=== PATIENT | male | born 1945 | race Caucasian/White ===

== ENCOUNTER 2019-12-05 08:11 | Outpatient (CLI) | payer MEDICARE ==
--- NOTE | 2019-12-05 10:53 | CT ---
CT ABDOMEN WITH CONTRAST CT PELVIS WITH CONTRAST: DATE: 12/05/2019 HISTORY: 74-year-old male with colon mass. COMPARISON: None. TECHNIQUE: IV injection of iodinated contrast media: Isovue 370. Oral contrast media: Administered. FINDINGS: There is a large number of metastatic lesions in the right lobe of the liver and several in the left lobe of the liver, with heterogeneously moderately low attenuation compared to the normal liver paren chyma, and irregular margins. For example, one of the larger ones in hepatic segment Broderick measures patrick roximately 2.5 x 2.5 x 3.5 cm. In addition to these, there are multiple benign hepatic cysts. The largest is in hepatic segment VII with broad base against the superior hepatic capsule, measuring approximately 6.0 x 4.5 x 3.5 cm. The portal vein is patent. No major pathology identified involving bilateral kidneys, pancreas, adrenals, and spleen. Enlarged prostate. Diffuse mural thickening of urinary bladder, suggestive of chronic bladder outlet obstruction due to the enlarged prostate. There are multiple mildly enlarged upper periaortic retroperitoneal lymph nodes. For example, a right anterior periaortic lymph node measures approximately 1.5 x 1.8 x 2.5 cm. There are many additional mildly to moderately enlarged bilateral paraaortic retroperitoneal lymph nodes, all in the upper retr operitoneum. There are also several mildly to moderately enlarged periportal lymph nodes. For example, the one lym ph node between the portal vein and the infrahepatic IVC measures approximately 3 x 9 x 1.5 cm. Mural thickening of the upper to mid rectum. There is a constricting mass at the hepatic flexure of the colon, which is highly likely to be colon cancer. It significantly narrows the lumen. There is a 2 cm calcified gallstone. No signs of acute cholecystitis. No ascites, small bowel dilation, colonic diverticulitis, or pleural effusion. There is a 2 cm posterior basilar segment left lower lobe pulmonary nodule. Nearby, there is a tiny s ubcentimeter pulmonary nodule. In the contralateral right lower lobe superior segment, there is a partially imaged pulmonary nodule which is at least 0.9 cm. Severe bilateral facet DJD at L4-5 causes Grade I anterolisthesis of L4 on L5. There is associated ve ry severe central spinal canal stenosis at L4-5. There is also severe bilateral facet DJD at L5-S1. No obvious destructive osseous lesion identified. IMPRESSION: 1. Numerous hepatic metastases. 2. Evidence for colon cancer in hepatic segment of the right colon. 3. Several bilateral pulmonary nodules, highly suspicious for pulmonary metastases. The largest is a pproximately 2 cm in left lower lobe base. 4. Very severe lumbar central spinal canal stenosis at L4-5 due to Grade I spondylolisthesis which i s due to severe bilateral facet osteoarthrosis. 5. Enlarged prostate and signs of chronic bladder outlet obstruction. 6. Cholelithiasis. CODE T. JNR POS: VARUN
== END 2019-12-05 08:12 | disposition home or self-care (01) ==
LOC: SCSCT 08:11
PROVIDERS: ATTEND Internal Medicine Gastroenterology
DX: K63.9 Disease of intestine, unspecified (principal); C18.3 Malignant neoplasm of hepatic flexure; C78.7 Secondary malignant neoplasm of liver and intrahepatic bile duct; R91.8 Other nonspecific abnormal finding of lung field; M48.061 Spinal stenosis, lumbar region without neurogenic claudication; M43.16 Spondylolisthesis, lumbar region; M47.816 Spondylosis without myelopathy or radiculopathy, lumbar region; N40.0 Benign prostatic hyperplasia without lower urinary tract symptoms; K80.20 Calculus of gallbladder without cholecystitis without obstruction
CPT/HCPCS: 74177

== ENCOUNTER 2019-12-10 14:39 | Outpatient (CLI) | payer MEDICARE, OTHER ==
--- NOTE | 2019-12-10 16:29 | RAD ---
EXAM: Single view of the chest HISTORY: Preoperative radiograph COMPARISON: 06/06/2018 FINDINGS: Single view of the chest shows a normal sized cardiomediastinal silhouette. There is a 3.7 cm mass projecting over the left upper lobe which is new compared to the prior radiograph. There may also be a nodule projecting over the right thorax. Degenerative changes are seen in the spine. IMPRESSION: Left upper lobe mass with possible right pulmonary mass. These could represent metastatic lesions. A CT the chest with contrast is recommended for further evaluation.
[2019-12-10 18:42] LABS: ALT (SGPT) 15 U/L (8-55); AST (SGOT) 18 U/L (5-34); Albumin 4.2 g/dL (3.4-4.8); Alkaline Phosphatase 97 U/L (40-110); Anion Gap 13 mmol/L (10-20); Anion Gap 14 mmol/L (10-20); BUN (Urea Nitrogen) 16 mg/dL (8.4-25.7); Bilirubin, Total 0.4 mg/dL (0.2-1.2); Calc. Creatinine Clearance 0 mL/min (70-130); Calcium 9.3 mg/dL (7.8-10.44); Calcium 9.5 mg/dL (7.8-10.44); Carbon Dioxide 24 mmol/L (23-31); Chloride 105 mmol/L (98-107); Estimated GFR-MDRD 70; Estimated GFR-MDRD 71; Globulin 2.3 g/dL (2.4-3.5); Glucose 119 mg/dL (83-110); Glucose 120 mg/dL (83-110); Iron Binding Capacity, Total 419 mcg/dL (261-462); Potassium 4.7 mmol/L (3.5-5.1); Potassium 5.1 mmol/L (3.5-5.1); Protein, Total 6.5 g/dL (5.8-8.1); Sodium 137 mmol/L (136-145); Sodium 138 mmol/L (136-145)
[2019-12-10 19:11] LABS: #Eosinphils 0.1 thou/uL (0.0-0.7); #Monocytes 0.7 thou/uL (0.11-0.59); #Neutrophils 6.3 thou/uL (1.40-6.50); %Basophils 0.2 % (0.0-1.0); %Eosinophils 1.1 % (0.0-10.0); %Lymphocytes 12.1 % (21.0-51.0); %Monocytes 8.8 % (0.0-10.0); %Neutrophils 77.8 % (42.0-75.0); Hemoglobin 11.8 g/dL (14.0-18.0); Hypochromia SLIGHT = 6-15 cells (100X) (0-5/hpf); Large Platelets SLIGHT; MDiff Complete? YES; Mean Corpuscular HGB CONC 29.8 g/dL (32.0-36.0); Mean Corpuscular Hemoglobin 23.3 pg (27.0-31.0); Mean Corpuscular Volume 78.3 fL (78.0-98.0); Mean Platelet Volume 10.8 fL (7.4-10.4); Ovalocytes SLIGHT = 2-5 cells (100X) (0-1/hpf); Platelet Count 233 thou/uL (130-400); Platelet Morphology Comment Appears Adequate; Polychromasia SLIGHT = 2-3 cells (100X) (0-2/hpf); RBC Distribution Width 25.3 % (11.5-14.5); Red Blood Cell (RBC) Count 5.07 mill/uL (4.70-6.10); Reflex for Review?? NO; Schistocytes SLIGHT = 2-5 cells (100X) (0-1/hpf); Target Cells MARKED = >16 cells (100X) (0-1/hpf); Tear Drops SLIGHT = 2-5 cells (100X) (0-1/hpf); White Blood Cell (WBC) Count 8.1 thou/uL (4.8-10.8)
[2019-12-11 15:44] LABS: SARS-CoV-2 MS2 Negative; SARS-CoV-2 N Gene Negative; SARS-CoV-2 S Gene Positive; SARS-CoV-2 by NAA DETECTED (NotDetected); SARS-CoV-2 orf1ab Positive
--- NOTE | 2019-12-11 17:30 | EKG ---
Test Reason : PREOP Blood Pressure : / mmHG Vent. Rate : 051 BPM Atrial Rate : 051 BPM P-R Int : 158 ms QRS Dur : 092 ms QT Int : 442 ms P-R-T Axes : 015 043 -06 degrees QTc Int : 407 ms Sinus bradycardia Nonspecific T wave abnormality Abnormal ECG Confirmed by DR. Rod NOGUEIRA ([id number]) on 12/11/2019 5:29:47 PM Referred By: SAMY Confirmed By:DR. Rod NOGUEIRA
== END 2019-12-10 14:40 | disposition home or self-care (01) ==
LOC: LABBT 14:39 → SCSRAD 14:40
PROVIDERS: ATTEND Specialist
DX: Z01.818 Encounter for other preprocedural examination (principal); U07.1 COVID-19; C18.9 Malignant neoplasm of colon, unspecified
CPT/HCPCS: 71045; 80048; 82378; 83550; 85025; 87635; 93005; 93010; U0003

== ENCOUNTER 2019-12-23 10:56 | Outpatient (CLI) | payer MEDICARE ==
[~2019-12-23 10:56] MED LIST: Iopamidol-370 76% 500 ML 1 ML ONE
--- NOTE | 2019-12-23 11:55 | CT ---
CT CHEST WITH CONTRAST CLINICAL INDICATION: Previously diagnosed with colon cancer. Pulmonary nodule seen at lung bases on prior CT abdomen. COMPARISON: CT abdomen on 12/05/2019 FINDINGS: Aorta: The aorta is normal in caliber without evidence of an aortic dissection. Lungs: There is multiple scattered bilateral pulmonary nodules seen throughout the lungs bilaterally. Largest pulmonary nodule on the right is located in the right upper lobe measuring 1.2 cm. There is a mass present in the left upper lobe which measures 3.8 cm in maximal dimensions. Largest pulmonary nodule is seen at the left inferior and medial left lung base seen on prior CT exam . This nodule measures 2.4 cm in maximal dimensions with a measurement on the prior study of 2 cm. Mediastinum: There is an enlarged left paratracheal/AP window lymph node measuring 2.3 cm x 1.6 cm. F ew enlarged prevascular space lymph nodes are seen measuring 1.1 cm in short axis dimension. There is minimal soft tissue density seen in the left hilar region also likely attributable to lymphadenopa thy. A calcified prevascular space lymph node is seen. The heart has a normal CT appearance. Thyroid gland: Normal CT appearance. Osseous structures: Degenerative changes are seen in the thoracic spine. No suspicious lytic or scler otic osseous lesion is identified. Chest wall: No abnormality visualized. Upper abdomen: As noted on CT of the abdomen, there are multiple hypodense metastatic lesions seen sc attered throughout the liver better visualized on prior CT abdomen. In addition, there are cysts present within the liver. A large gallbladder calculus is again seen. Previously described enlarged a nd increased number of periportal lymph nodes are visualized with increase in number of mildly enlarged aortocaval lymph nodes partially imaged. Moderate amount retained fecal material seen in the region of the splenic flexure with evidence of colonic diverticulosis. Splenic granulomata are seen. IMPRESSION: 1. Metastatic disease with multiple bilateral pulmonary nodules including a left upper lobe pulmonary mass measuring 3.8 cm. 2. Mediastinal, periportal, and aortocaval lymphadenopathy. 3. Multiple hepatic metastatic lesions. 4. Cholelithiasis.
== END 2019-12-23 10:57 | disposition home or self-care (01) ==
LOC: BICCT 10:56
PROVIDERS: ATTEND Internal Medicine Hematology & Oncology
DX: C18.6 Malignant neoplasm of descending colon (principal); R91.8 Other nonspecific abnormal finding of lung field; K80.20 Calculus of gallbladder without cholecystitis without obstruction; R59.0 Localized enlarged lymph nodes; C78.7 Secondary malignant neoplasm of liver and intrahepatic bile duct
CPT/HCPCS: 71260; Q9967

== ENCOUNTER 2019-12-30 11:37 | Day surgery (SDC) | payer MEDICARE ==
[2019-12-26 14:37] VITALS: BMI 24.5
[~2019-12-30 11:37] MED LIST changes: +Glycopyrrolate 0.2 MG/ML 5 ML SYRINGE ONE; -Iopamidol-370 76% 500 ML 1 ML ONE; +Ondansetron PF 4 MG/2 ML Vial ONE
[2019-12-30] MEDS ORDERED: Acetaminophen 500 MG TAB ONE (12:17)
[2019-12-30] MEDS ORDERED: Ketorolac Tromethamine 30 MG/ML VIAL ONE (12:17)
[2019-12-30] MEDS ORDERED: Bupivacaine/Epinephrine 0.25% 30 ML VIAL ONE (14:46)
[2019-12-30] MEDS ORDERED: Lidocaine 1% (PF) 30 ML VIAL ONE (14:46)
[2019-12-30] MEDS ORDERED: Propofol 1,000 MG/100 ML VIAL IV ONE (14:55)
[2019-12-30] MEDS ORDERED: Fentanyl 100 MCG/2 ML VIAL ONE (14:55)
--- NOTE | 2019-12-30 16:20 | RAD ---
Exam: Chest one view HISTORY:Status post Mediport placement. Left lung mass. Comparison: 12/10/2019 FINDINGS: Cardiac silhouette: Normal Aorta: Unremarkable Pulmonary vessels: Normal Costophrenic angles: Clear LUNGS: Stable left upper lobe mass. Lines and tubes: Interval placement of right-sided Mediport catheter with the distal tip projecting o johnnie the superior vena cava. Pneumothorax: None Osseous abnormalities: None IMPRESSION: 1. Interval placement of right-sided Mediport catheter. No pneumothorax. 2. Left upper lobe mass.
--- NOTE | 2019-12-31 12:41 | OP ---
DATE OF PROCEDURE: 12/30/2019 PREOPERATIVE DIAGNOSIS: Metastatic colon cancer. POSTOPERATIVE DIAGNOSIS: Metastatic colon cancer. PROCEDURE PERFORMED: Placement of right subclavian power compatible standard size MediPort. ANESTHESIA: Total intravenous anesthesia with local using 0.25% Marcaine with epinephrine as well as 1% plain lidocaine. INDICATIONS: The patient is a 74-year-old white male who was recently diagnosed with colon cancer. He unfortunately was found to have widely metastatic cancer to his liver. He was taken to the operating at this time for MediPort placement for chemotherapy administration. DESCRIPTION OF PROCEDURE: Informed consent was obtained. The patient was taken to the operating room where total intravenous anesthesia was obtained with the patient in supine position. Right paraclavicular area was prepped with ChloraPrep and draped in sterile fashion. Local anesthetic was infiltrated and a large-gauge needle was passed under the clavicle in the subclavian vein. Guidewire was passed through the needle and fluoroscopically confirmed to enter the superior vena cava. Additional local anesthetic was infiltrated and transverse incision was created based on needle insertion site. A subcutaneous pocket was dissected inferiorly. Introducer dilator was passed over the guidewire under fluoroscopic guidance. The guidewire and dilator were removed, and the catheter was passed through the introducer. The tip of the catheter was positioned at the atriocaval junction and the catheter was trimmed to the appropriate length and secured to the locking hub of the MediPort. The port was then placed in the subcutaneous pocket where it was secured to the pectoral fascia with 2 interrupted sutures of 3-0 Prolene. The incision was then closed in layers with 3-0 and 4-0 Monocryl. Additional local anesthetic was infiltrated. The port was cannulated with a Macdonald needle and it aspirated blood freely and was flushed with heparinized saline. Dermabond was placed externally on the skin incision. There were no complications. Blood loss was negligible. The patient tolerated the procedure well and was taken to recovery room in stable condition. FINDINGS: I placed a standard size MediPort secondary to his body habitus. This was placed uneventfully into the right subclavian vein. Fluoroscopy was used throughout the procedure. There were no complications. Job ID: [id number]
== END 2019-12-30 17:00 | disposition home or self-care (01) ==
LOC: SDC 11:37
PROVIDERS: ATTEND Specialist
PROC: 02HV33Z Insertion of Infusion Device into Superior Vena Cava, Percutaneous Approach (ICD-10-PCS; principal; 2019-12-30)
DX: C18.9 Malignant neoplasm of colon, unspecified (principal); C78.7 Secondary malignant neoplasm of liver and intrahepatic bile duct; I10 Essential (primary) hypertension; E78.5 Hyperlipidemia, unspecified; J45.909 Unspecified asthma, uncomplicated; F17.290 Nicotine dependence, other tobacco product, uncomplicated; Z79.899 Other long term (current) drug therapy
CPT/HCPCS: 71045; C1788; J0690; J1642; J1885; J2001; J2405; J2704; J3010

== ENCOUNTER 2020-03-20 22:48 | Observation (INO) | payer MEDICARE ==
[2020-03-21 00:08] LABS: Bilirubin Negative (Negative); Blood, Urine Negative (Negative); Clarity Clear (Clear); Glucose, Urine (Dipstick) Normal (Negative); Ketone, Urine Trace mg/dL (Negative); Leukocyte Negative Leu/uL (Negative); Nitrite Negative (Negative); Protein, Urine (Dipstick) 100 mg/dL (Neg-Trace); Specific Gravity, Urine 1.032 (1.002-1.036); Urobilinogen Normal mg/dL (Less than 2)
[2020-03-21 00:09] LABS: Bacteria/HPF None Seen HPF (None Seen); RBC/HPF 0-3 HPF (0-3); Squamous Epithelial 0-3 HPF (0-3)
[2020-03-21 00:22] LABS: #Lymphocytes 0.7 thou/uL (1.20-3.40); #Monocytes 0.3 thou/uL (0.11-0.59); #Neutrophils 2.5 thou/uL (1.40-6.50); %Basophils 0.5 % (0.0-1.0); %Eosinophils 0.4 % (0.0-10.0); %Lymphocytes 20.8 % (21.0-51.0); %Neutrophils 70.4 % (42.0-75.0); Hemoglobin 15.6 g/dL (14.0-18.0); Large Platelets SLIGHT; MDiff Complete? YES; Mean Corpuscular HGB CONC 33.7 g/dL (32.0-36.0); Mean Corpuscular Volume 85.9 fL (78.0-98.0); Mean Platelet Volume 11.9 fL (7.4-10.4); Platelet Count 57 thou/uL (130-400); Platelet Morphology Comment Appears Decreased; RBC Distribution Width 20.6 % (11.5-14.5); Red Blood Cell (RBC) Count 5.37 mill/uL (4.70-6.10); White Blood Cell (WBC) Count 3.5 thou/uL (4.8-10.8)
[2020-03-21 00:28] LABS: ALT (SGPT) 28 U/L (8-55); AST (SGOT) 68 U/L (5-34); Albumin 3.1 g/dL (3.4-4.8); Alkaline Phosphatase 138 U/L (40-110); Anion Gap 16 mmol/L (10-20); BUN (Urea Nitrogen) 20 mg/dL (8.4-25.7); Bilirubin, Total 0.9 mg/dL (0.2-1.2); Calc. Creatinine Clearance 0 mL/min (70-130); Calcium 8.1 mg/dL (7.8-10.44); Carbon Dioxide 22 mmol/L (23-31); Chloride 97 mmol/L (98-107); Globulin 3.1 g/dL (2.4-3.5); Glucose 104 mg/dL (83-110); Potassium 3.9 mmol/L (3.5-5.1); Protein, Total 6.2 g/dL (5.8-8.1); Sodium 131 mmol/L (136-145)
[2020-03-21] MEDS ORDERED: Mag-Al 1200 mg/1200 mg/30 ML UDCUP ONE (01:12)
[2020-03-21] MEDS ORDERED: Lidocaine Viscous Sol 2% 15 ml UD Cup ONE (01:12)
[2020-03-21 01:27] LABS: CKMB 1.6 ng/mL (0-6.6)
[2020-03-21] MEDS ORDERED: Acetaminophen 325 MG TAB PO PRN (01:52)
[2020-03-21] MEDS ORDERED: Senokot S 8.6-50 MG TAB PO PRN (01:52)
[2020-03-21] MEDS ORDERED: Sodium Chloride 0.9% 1,000 ML IV SCH (02:00)
[2020-03-21 03:46] LABS: #Lymphocytes 0.8 thou/uL (1.20-3.40); #Monocytes 0.3 thou/uL (0.11-0.59); #Neutrophils 1.7 thou/uL (1.40-6.50); %Eosinophils 0.7 % (0.0-10.0); %Lymphocytes 28.5 % (21.0-51.0); %Monocytes 9.5 % (0.0-10.0); %Neutrophils 61.4 % (42.0-75.0); Hemoglobin 13.6 g/dL (14.0-18.0); Mean Corpuscular HGB CONC 33.6 g/dL (32.0-36.0); Mean Corpuscular Hemoglobin 28.8 pg (27.0-31.0); Mean Corpuscular Volume 85.7 fL (78.0-98.0); Mean Platelet Volume 6.3 fL (7.4-10.4); Platelet Count 49 thou/uL (130-400); RBC Distribution Width 20.5 % (11.5-14.5); Red Blood Cell (RBC) Count 4.71 mill/uL (4.70-6.10); White Blood Cell (WBC) Count 2.8 thou/uL (4.8-10.8)
[2020-03-21 03:52] VITALS: BMI 24.1
[2020-03-21 04:02] LABS: ALT (SGPT) 23 U/L (8-55); AST (SGOT) 60 U/L (5-34); Albumin 2.8 g/dL (3.4-4.8); Alkaline Phosphatase 117 U/L (40-110); Anion Gap 15 mmol/L (10-20); BUN (Urea Nitrogen) 19 mg/dL (8.4-25.7); Bilirubin, Total 0.7 mg/dL (0.2-1.2); Calc. Creatinine Clearance 64 mL/min (70-130); Calcium 7.5 mg/dL (7.8-10.44); Carbon Dioxide 19 mmol/L (23-31); Chloride 102 mmol/L (98-107); Globulin 2.5 g/dL (2.4-3.5); Glucose 83 mg/dL (83-110); Potassium 3.7 mmol/L (3.5-5.1); Protein, Total 5.3 g/dL (5.8-8.1); Sodium 132 mmol/L (136-145)
[2020-03-21 04:04] LABS: Troponin I 0.029 ng/mL (< 0.028)
[2020-03-21 06:54] LABS: Troponin I 0.022 ng/mL (< 0.028)
[2020-03-21 10:24] LABS: SARS-CoV-2 PCR by NAA DETECTED (NotDetected)
[2020-03-21] MEDS: cefTRIAXone\\ROCEPHIN 1 GM in Sodium Chloride 0.9% 100 ML IVPB SCH (16:29)
[2020-03-21] MEDS ORDERED: Albuterol 200 PUFF (6.7GM INHALER) INH PRN (20:29)
[2020-03-21] MEDS: guaiFENesin 200 MG TAB PO PRN (20:56)
[2020-03-21] MEDS ORDERED: FLU VACC QS2020-21(65YR UP)/PF 240 MCG/0.7 ML SYRINGE IM ONE (21:00)
[2020-03-22 06:18] LABS: D-Dimer Test 3.53 *mcg/mL (0.27-0.43)
[2020-03-22 06:24] LABS: Anion Gap 12 mmol/L (10-20); BUN (Urea Nitrogen) 14 mg/dL (8.4-25.7); Calc. Creatinine Clearance 72 mL/min (70-130); Calcium 7.3 mg/dL (7.8-10.44); Carbon Dioxide 22 mmol/L (23-31); Chloride 103 mmol/L (98-107); Glucose 67 mg/dL (83-110); Potassium 3.6 mmol/L (3.5-5.1); Sodium 133 mmol/L (136-145)
[2020-03-22 06:45] LABS: Band 18 % (5-11); Eosinophils 2 % (0-10); Hemoglobin 12.7 g/dL (14.0-18.0); Hypochromia SLIGHT = 6-15 cells (100X) (0-5/hpf); Lymphocytes 30 % (21-51); MDiff Complete? YES; Mean Corpuscular HGB CONC 33.4 g/dL (32.0-36.0); Mean Corpuscular Hemoglobin 28.6 pg (27.0-31.0); Mean Corpuscular Volume 85.7 fL (78.0-98.0); Mean Platelet Volume 5.3 fL (7.4-10.4); Monocytes 2 % (0-10); Neutrophil 48 % (42-75); Platelet Count 47 thou/uL (130-400); Platelet Morphology Comment Appears Decreased; RBC Distribution Width 20.6 % (11.5-14.5); Red Blood Cell (RBC) Count 4.44 mill/uL (4.70-6.10); White Blood Cell (WBC) Count 2.9 thou/uL (4.8-10.8)
[2020-03-22 12:48] VITALS: BP 131/62; TEMP 97.8
[2020-03-22] MEDS: cefTRIAXone\\ROCEPHIN 1 GM in Sodium Chloride 0.9% 100 ML IVPB SCH (15:50)
[2020-03-22] MEDS: guaiFENesin 200 MG TAB PO PRN (15:56)
[2020-03-22 18:43] LABS: SARS-CoV-2 IgG Ab Non-Reactive (NonReactive)
[2020-03-23 12:11] LABS: SARS-CoV-2 IgG Index 0.02 S/CO (< 1.40)
== END 2020-03-22 16:23 | disposition home or self-care (01) ==
LOC: ERS 22:48 → 2NO 03-21 01:17 → 2SE 03-21 15:39
PROVIDERS: ADMIT Student in an Organized Health Care Education/Training Program; ATTEND Student in an Organized Health Care Education/Training Program
DX: U07.1 COVID-19 (principal); E86.0 Dehydration; I10 Essential (primary) hypertension; C18.9 Malignant neoplasm of colon, unspecified; I47.2 Ventricular tachycardia; I21.A1 Myocardial infarction type 2; Z79.899 Other long term (current) drug therapy
CPT/HCPCS: 36415; 70450; 71045; 71260; 74177; 80048; 80053; 81003; 81015; 82553; 83735; 84484; 85025; 85379; 85384; 86141; 86769; 87040; 87635; 93005; 93306; J0696; J1642; J3490; U0003; U0005

== ENCOUNTER 2020-03-25 16:27 | Inpatient (IN) | payer MEDICARE ==
[~2020-03-25 16:27] MED LIST changes: -Glycopyrrolate 0.2 MG/ML 5 ML SYRINGE ONE; +Iopamidol-370 76% 500 ML 1 ML ONE; -Ondansetron PF 4 MG/2 ML Vial ONE
[2020-03-25 17:22] LABS: Hemoglobin 16.4 g/dL (14.0-18.0); Mean Corpuscular Hemoglobin 28.8 pg (27.0-31.0); Mean Corpuscular Volume 90.1 fL (78.0-98.0); Mean Platelet Volume 10.5 fL (7.4-10.4); Platelet Count 103 thou/uL (130-400); RBC Distribution Width 21.7 % (11.5-14.5); Red Blood Cell (RBC) Count 5.69 mill/uL (4.70-6.10); White Blood Cell (WBC) Count 2.8 thou/uL (4.8-10.8)
[2020-03-25] MEDS ORDERED: Albuterol 200 PUFF (6.7GM INHALER) ONE (17:22)
[2020-03-25] MEDS ORDERED: Dexamethasone 10 MG/ML VIAL ONE (17:22)
[2020-03-25] MEDS ORDERED: Cefepime 2 GM VIAL ONE (17:22)
[2020-03-25 17:38] LABS: Anisocytosis SLIGHT = 6-15 cells (100X) (0-5/hpf); Band 12 % (5-11); Large Platelets SLIGHT; Lymphocytes 15 % (21-51); MDiff Complete? YES; Monocytes 18 % (0-10); Neutrophil 54 % (42-75); Ovalocytes SLIGHT = 2-5 cells (100X) (0-1/hpf); Platelet Morphology Comment Appears Decreased; Polychromasia SLIGHT = 2-3 cells (100X) (0-2/hpf); Reactive Lymphocytes 1 % (0-10)
[2020-03-25 17:42] LABS: ALT (SGPT) 26 U/L (8-55); AST (SGOT) 75 U/L (5-34); Albumin 3.1 g/dL (3.4-4.8); Alkaline Phosphatase 202 U/L (40-110); Anion Gap 19 mmol/L (10-20); BUN (Urea Nitrogen) 14 mg/dL (8.4-25.7); Bilirubin, Total 1.3 mg/dL (0.2-1.2); Calc. Creatinine Clearance 0 mL/min (70-130); Calcium 8.3 mg/dL (7.8-10.44); Carbon Dioxide 19 mmol/L (23-31); Chloride 100 mmol/L (98-107); Globulin 3.5 g/dL (2.4-3.5); Glucose 101 mg/dL (83-110); Protein, Total 6.6 g/dL (5.8-8.1); Sodium 134 mmol/L (136-145)
[2020-03-25] MEDS ORDERED: Vancomycin 1.5 GRAM/300 ML BAG 1.5 GM in Premix Bag 1 BAG IVPB SCH (17:45)
[2020-03-25 18:04] LABS: INR-International Normal Ratio 1.2; PTT 37.6 sec (22.9-36.1); Prothrombin Time 15.5 sec (12.0-14.7)
[2020-03-25] MEDS ORDERED: Enoxaparin Sodium 80 MG/0.8 ML SYRINGE ONE (18:17)
[2020-03-25] MEDS ORDERED: Acetaminophen 500 MG TAB ONE (18:31)
[2020-03-25 19:05] LABS: Bacteria/HPF None Seen HPF (None Seen); Bilirubin Negative (Negative); Blood, Urine Trace (Negative); Clarity Clear (Clear); Glucose, Urine (Dipstick) 30 mg/dL (Negative); Ketone, Urine Negative (Negative); Leukocyte Negative Leu/uL (Negative); Nitrite Negative (Negative); Protein, Urine (Dipstick) 70 mg/dL (Neg-Trace); RBC/HPF 0-3 HPF (0-3); Specific Gravity, Urine 1.035 (1.002-1.036); Squamous Epithelial 0-3 HPF (0-3); Urobilinogen Normal mg/dL (Less than 2); WBC/HPF 0-3 HPF (0-3); pH, Urine 6.5 (5.0-9.0)
[2020-03-25 19:21] LABS: Base Excess-Venous -2.4 mmol/L (-2.0 to 3.0); Bicarbonate (HCO3v) 20.3 mmol/L (22.0-28.0); CO2 Tension (PvCO2) 28.8 mmHg (40.0-50.0); Calcium, Ionized 1.02 mmol/L (1.15-1.33); Chloride 100 mmol/L (98-107); Hemoglobin - Calc 13.6 g/dL (14.0-18.0); Potassium 4.2 mmol/L (3.5-5.1); Sodium 134 mmol/L (138-145); T. Carbon Dioxide 21.2 mmol/L (22.0-28.0); vO2 Saturation-calc 85.9 % (60.0-85.0)
[2020-03-25 20:56] LABS: Troponin I 0.137 ng/mL (< 0.028)
[2020-03-25 21:03] LABS: Lactic Acid 3.4 mmol/L (0.5-2.2)
[2020-03-25] MEDS ORDERED: cloNIDine 0.1 MG TAB PO PRN (21:17)
[2020-03-25] MEDS ORDERED: Promethazine HCl 12.5 MG in Sodium Chloride 0.9% 50 ML IVPB PRN (21:17)
[2020-03-25] MEDS ORDERED: HYDROcodone/Acetaminophen 5/325 mg Tablet PO PRN (21:17)
[2020-03-25] MEDS ORDERED: hydrALAZINE 20 MG/ML VIAL SLOW IVP PRN (21:17)
[2020-03-25] MEDS ORDERED: Ondansetron PF 4 MG/2 ML Vial IVP PRN (21:17)
[2020-03-25] MEDS ORDERED: Labetalol HCl 100 MG/20 ML VIAL SLOW IVP PRN (21:17)
[2020-03-25] MEDS ORDERED: Electrolyte Replacement Protocol 1 EACH FS SCH (21:30)
[2020-03-25] MEDS ORDERED: Electrolyte Replacement Protocol FS PRN (22:00)
[2020-03-26 00:09] LABS: Troponin I 0.122 ng/mL (< 0.028)
[2020-03-26 05:24] LABS: Anion Gap 16 mmol/L (10-20); BUN (Urea Nitrogen) 17 mg/dL (8.4-25.7); Calc. Creatinine Clearance 89 mL/min (70-130); Calcium 7.8 mg/dL (7.8-10.44); Carbon Dioxide 21 mmol/L (23-31); Chloride 103 mmol/L (98-107); Glucose 175 mg/dL (83-110); Magnesium 2.4 mg/dL (1.6-2.6); Potassium 4.6 mmol/L (3.5-5.1); Sodium 135 mmol/L (136-145)
[2020-03-26 05:29] LABS: Band 8 % (5-11); Hemoglobin 13.4 g/dL (14.0-18.0); Lymphocytes 6 % (21-51); MDiff Complete? YES; Mean Corpuscular HGB CONC 32.8 g/dL (32.0-36.0); Mean Corpuscular Hemoglobin 28.7 pg (27.0-31.0); Mean Corpuscular Volume 87.7 fL (78.0-98.0); Mean Platelet Volume 10.1 fL (7.4-10.4); Monocytes 30 % (0-10); Neutrophil 50 % (42-75); Platelet Count 104 thou/uL (130-400); Platelet Morphology Comment Appears Decreased; RBC Distribution Width 20.9 % (11.5-14.5); RBC Morphology Normal; Reactive Lymphocytes 6 % (0-10); Red Blood Cell (RBC) Count 4.66 mill/uL (4.70-6.10); White Blood Cell (WBC) Count 2.1 thou/uL (4.8-10.8)
[2020-03-26] MEDS: Enoxaparin Sodium 80 MG/0.8 ML SYRINGE SC SCH ×2 (08:41→21:19)
[2020-03-26] MEDS: Dexamethasone 4 mg/ml Vial SLOW IVP SCH (08:42)
[2020-03-26] MEDS: Amlodipine 5 MG TAB PO SCH (08:42)
[2020-03-26] MEDS: Polyethylene Glycol 3350 17 GM Packet PO SCH (08:43)
[2020-03-26] MEDS ORDERED: Magnesium 2 GM/50 ML 2 GM in Premix Bag 1 BAG IVPB SCH (10:00)
[2020-03-26] MEDS ORDERED: Zolpidem Tartrate 5 MG TAB PO PRN (15:51)
[2020-03-26 18:41] LABS: Hemoglobin 14.1 g/dL (14.0-18.0); Platelet Count 124 thou/uL (130-400)
[2020-03-26 19:01] LABS: Calc. Creatinine Clearance 86 mL/min (70-130)
[2020-03-26 20:05] LABS: SARS-CoV-2 IgG Ab Reactive (NonReactive); SARS-CoV-2 IgG Index 6.24 S/CO (< 1.40)
[2020-03-26] MEDS: Melatonin 3 MG TAB PO PRN (22:51)
[2020-03-27 05:40] LABS: Anion Gap 16 mmol/L (10-20); BUN (Urea Nitrogen) 21 mg/dL (8.4-25.7); Calc. Creatinine Clearance 79 mL/min (70-130); Calcium 7.7 mg/dL (7.8-10.44); Carbon Dioxide 19 mmol/L (23-31); Chloride 107 mmol/L (98-107); Glucose 123 mg/dL (83-110); Magnesium 2.7 mg/dL (1.6-2.6); Potassium 4.5 mmol/L (3.5-5.1); Sodium 137 mmol/L (136-145)
[2020-03-27 06:19] LABS: Band 20 % (5-11); Burr Cells SLIGHT = 2-5 cells (100X) (0-1/hpf); Hemoglobin 13.5 g/dL (14.0-18.0); Lymphocytes 19 % (21-51); MDiff Complete? YES; Mean Corpuscular HGB CONC 33.2 g/dL (32.0-36.0); Mean Corpuscular Hemoglobin 29.6 pg (27.0-31.0); Mean Corpuscular Volume 89.1 fL (78.0-98.0); Mean Platelet Volume 10.1 fL (7.4-10.4); Monocytes 23 % (0-10); Neutrophil 37 % (42-75); Nucleated RBC 1 % (0); Platelet Count 102 thou/uL (130-400); Platelet Morphology Comment Appears Decreased; RBC Distribution Width 21.1 % (11.5-14.5); Reactive Lymphocytes 1 % (0-10); Red Blood Cell (RBC) Count 4.56 mill/uL (4.70-6.10); White Blood Cell (WBC) Count 3.5 thou/uL (4.8-10.8)
[2020-03-27] MEDS: Amlodipine 5 MG TAB PO SCH (08:25)
[2020-03-27] MEDS: Enoxaparin Sodium 80 MG/0.8 ML SYRINGE SC SCH ×2 (08:26→19:52)
[2020-03-27] MEDS: Dexamethasone 4 mg/ml Vial SLOW IVP SCH (08:26)
[2020-03-27] MEDS: Polyethylene Glycol 3350 17 GM Packet PO SCH (09:03)
[2020-03-28 05:17] LABS: Anion Gap 12 mmol/L (10-20); BUN (Urea Nitrogen) 23 mg/dL (8.4-25.7); Calc. Creatinine Clearance 91 mL/min (70-130); Calcium 7.8 mg/dL (7.8-10.44); Carbon Dioxide 21 mmol/L (23-31); Chloride 106 mmol/L (98-107); Glucose 105 mg/dL (83-110); Magnesium 2.6 mg/dL (1.6-2.6); Potassium 4.7 mmol/L (3.5-5.1); Sodium 134 mmol/L (136-145)
[2020-03-28 05:58] LABS: Band 22 % (5-11); Hemoglobin 13.3 g/dL (14.0-18.0); Lymphocytes 17 % (21-51); MDiff Complete? YES; Mean Corpuscular Hemoglobin 28.1 pg (27.0-31.0); Mean Corpuscular Volume 87.9 fL (78.0-98.0); Mean Platelet Volume 9.4 fL (7.4-10.4); Monocytes 11 % (0-10); Neutrophil 50 % (42-75); Platelet Count 144 thou/uL (130-400); RBC Distribution Width 21.9 % (11.5-14.5); Red Blood Cell (RBC) Count 4.74 mill/uL (4.70-6.10); White Blood Cell (WBC) Count 3.8 thou/uL (4.8-10.8)
[2020-03-28] MEDS: Amlodipine 5 MG TAB PO SCH (07:43)
[2020-03-28] MEDS: Dexamethasone 4 mg/ml Vial SLOW IVP SCH (07:43)
[2020-03-28] MEDS: Polyethylene Glycol 3350 17 GM Packet PO SCH (07:43)
[2020-03-28] MEDS: Enoxaparin Sodium 80 MG/0.8 ML SYRINGE SC SCH ×2 (07:44→19:45)
[2020-03-28] MEDS: Acetaminophen 325 MG TAB PO PRN (09:01)
[2020-03-28] MEDS: Melatonin 3 MG TAB PO PRN (20:56)
[2020-03-29] MEDS ORDERED: Vancomycin HCl 1.5 GM in Sodium Chloride 0.9% 250 ML 300 ML IVPB SCH (08:15)
[2020-03-29] MEDS ORDERED: Mirtazapine 15 MG TAB PO SCH (09:00)
[2020-03-29] MEDS: Cefepime 2 GM in Sodium Chloride 0.9% 100 ML IVPB SCH ×2 (09:59→20:46)
[2020-03-29] MEDS: Enoxaparin Sodium 80 MG/0.8 ML SYRINGE SC SCH ×2 (10:00→20:47)
[2020-03-29] MEDS: Amlodipine 5 MG TAB PO SCH (10:00)
[2020-03-29] MEDS: Dexamethasone 4 mg/ml Vial SLOW IVP SCH (10:00)
[2020-03-29] MEDS: Polyethylene Glycol 3350 17 GM Packet PO SCH ×2 (10:01→10:36)
[2020-03-29] MEDS: Saccharomyces boulardii 250 MG CAP PO SCH (10:01)
[2020-03-29] MEDS: Acetaminophen 325 MG TAB PO PRN (10:03)
[2020-03-29] MEDS: Guaifenesin DM 100-10/5 ML UDCUP PO PRN (10:04)
[2020-03-29 15:47] LABS: Hemoglobin 13.7 g/dL (14.0-18.0); Platelet Count 137 thou/uL (130-400)
[2020-03-30 06:33] LABS: ALT (SGPT) 22 U/L (8-55); AST (SGOT) 39 U/L (5-34); Albumin 2.4 g/dL (3.4-4.8); Alkaline Phosphatase 169 U/L (40-110); Anion Gap 11 mmol/L (10-20); BUN (Urea Nitrogen) 19 mg/dL (8.4-25.7); Bilirubin, Total 0.8 mg/dL (0.2-1.2); CRP (Inflammatory) 8.73 mg/dL (= or < 0.5); Calc. Creatinine Clearance 69 mL/min (70-130); Calcium 7.8 mg/dL (7.8-10.44); Carbon Dioxide 26 mmol/L (23-31); Chloride 108 mmol/L (98-107); Globulin 2.9 g/dL (2.4-3.5); Glucose 64 mg/dL (83-110); Potassium 5.5 mmol/L (3.5-5.1); Protein, Total 5.3 g/dL (5.8-8.1); Sodium 139 mmol/L (136-145)
[2020-03-30 07:13] LABS: #Lymphocytes 0.8 thou/uL (1.20-3.40); #Monocytes 0.4 thou/uL (0.11-0.59); #Neutrophils 5.1 thou/uL (1.40-6.50); %Basophils 0.1 % (0.0-1.0); %Eosinophils 0.8 % (0.0-10.0); %Lymphocytes 12.6 % (21.0-51.0); %Monocytes 6.1 % (0.0-10.0); %Neutrophils 80.5 % (42.0-75.0); Hemoglobin 14.3 g/dL (14.0-18.0); Mean Corpuscular HGB CONC 31.8 g/dL (32.0-36.0); Mean Corpuscular Hemoglobin 28.5 pg (27.0-31.0); Mean Corpuscular Volume 89.5 fL (78.0-98.0); Mean Platelet Volume 9.3 fL (7.4-10.4); Platelet Count 141 thou/uL (130-400); RBC Distribution Width 21.9 % (11.5-14.5); Red Blood Cell (RBC) Count 5.04 mill/uL (4.70-6.10); White Blood Cell (WBC) Count 6.3 thou/uL (4.8-10.8)
[2020-03-30 08:25] LABS: Band 14 % (5-11); Lymphocytes 13 % (21-51); MDiff Complete? YES; Metamyelocyte 3 % (0-0); Monocytes 2 % (0-10); Myelocyte 1 % (0-0); Neutrophil 65 % (42-75); Nucleated RBC 4 % (0); Platelet Morphology Comment Appears Adequate; Polychromasia MODERATE = 3-4 cells (100X) (0-2/hpf); Reactive Lymphocytes 2 % (0-10)
[2020-03-30] MEDS: Dexamethasone 4 mg/ml Vial SLOW IVP SCH (09:04)
[2020-03-30] MEDS: Cefepime 2 GM in Sodium Chloride 0.9% 100 ML IVPB SCH ×2 (09:04→22:27)
[2020-03-30] MEDS: Amlodipine 5 MG TAB PO SCH (09:04)
[2020-03-30] MEDS: Saccharomyces boulardii 250 MG CAP PO SCH (09:05)
[2020-03-30] MEDS: Polyethylene Glycol 3350 17 GM Packet PO SCH (09:05)
[2020-03-30] MEDS: Guaifenesin DM 100-10/5 ML UDCUP PO PRN (09:19)
[2020-03-30 16:24] LABS: Potassium 4.7 mmol/L (3.5-5.1)
[2020-03-30] MEDS: Apixaban 5 MG TAB PO SCH (22:27)
[2020-03-30] MEDS: Mirtazapine 15 MG TAB PO SCH (22:27)
[2020-03-31 05:21] LABS: Hemoglobin 13.5 g/dL (14.0-18.0); Mean Corpuscular HGB CONC 32.1 g/dL (32.0-36.0); Mean Corpuscular Hemoglobin 28.4 pg (27.0-31.0); Mean Corpuscular Volume 88.5 fL (78.0-98.0); Mean Platelet Volume 9.3 fL (7.4-10.4); Platelet Count 123 thou/uL (130-400); RBC Distribution Width 21.3 % (11.5-14.5); Red Blood Cell (RBC) Count 4.76 mill/uL (4.70-6.10)
[2020-03-31 05:28] LABS: Anion Gap 10 mmol/L (10-20); BUN (Urea Nitrogen) 20 mg/dL (8.4-25.7); Calc. Creatinine Clearance 83 mL/min (70-130); Calcium 7.5 mg/dL (7.8-10.44); Carbon Dioxide 22 mmol/L (23-31); Chloride 107 mmol/L (98-107); Glucose 68 mg/dL (83-110); Potassium 4.1 mmol/L (3.5-5.1); Sodium 135 mmol/L (136-145)
[2020-03-31] MEDS: Cefepime 2 GM in Sodium Chloride 0.9% 100 ML IVPB SCH ×2 (08:01→21:42)
[2020-03-31] MEDS: Saccharomyces boulardii 250 MG CAP PO SCH (08:01)
[2020-03-31] MEDS: Amlodipine 5 MG TAB PO SCH (08:01)
[2020-03-31] MEDS: Apixaban 5 MG TAB PO SCH ×2 (08:02→21:41)
[2020-03-31] MEDS: Dexamethasone 4 mg/ml Vial SLOW IVP SCH (08:02)
[2020-03-31] MEDS: Polyethylene Glycol 3350 17 GM Packet PO SCH (08:34)
[2020-03-31] MEDS: Mirtazapine 15 MG TAB PO SCH (21:42)
[2020-04-01] MEDS: Cefepime 2 GM in Sodium Chloride 0.9% 100 ML IVPB SCH ×2 (10:03→22:03)
[2020-04-01] MEDS: Amlodipine 5 MG TAB PO SCH (10:04)
[2020-04-01] MEDS: Saccharomyces boulardii 250 MG CAP PO SCH (10:04)
[2020-04-01] MEDS: Apixaban 5 MG TAB PO SCH ×2 (10:05→22:11)
[2020-04-01] MEDS: methylPREDNISolone Sod Succ/PF 125 MG/2 ML VIAL IVP SCH (10:05)
[2020-04-01] MEDS: Polyethylene Glycol 3350 17 GM Packet PO SCH (10:09)
[2020-04-01] MEDS: Mirtazapine 15 MG TAB PO SCH (22:11)
[2020-04-02] MEDS: Morphine 2 MG/ML VIAL SLOW IVP PRN ×2 (01:35→10:20)
[2020-04-02] MEDS: methylPREDNISolone Sod Succ/PF 125 MG/2 ML VIAL IVP SCH (09:34)
[2020-04-02] MEDS: Cefepime 2 GM in Sodium Chloride 0.9% 100 ML IVPB SCH ×2 (09:58→20:06)
[2020-04-02] MEDS: Polyethylene Glycol 3350 17 GM Packet PO SCH (10:05)
[2020-04-02] MEDS: Morphine 4 MG/ML VIAL SLOW IVP PRN ×3 (10:52→15:02)
[2020-04-02 11:48] VITALS: BMI 22.7
[2020-04-02] MEDS: Saccharomyces boulardii 250 MG CAP PO SCH (12:07)
[2020-04-02] MEDS: Amlodipine 5 MG TAB PO SCH (12:08)
[2020-04-02] MEDS: Apixaban 5 MG TAB PO SCH ×2 (12:08→20:07)
[2020-04-02 16:06] LABS: Hemoglobin 13.9 g/dL (14.0-18.0); Platelet Count 100 thou/uL (130-400)
[2020-04-02] MEDS: Mirtazapine 15 MG TAB PO SCH (20:07)
[2020-04-03] MEDS: Morphine 4 MG/ML VIAL SLOW IVP PRN ×4 (08:25→13:03)
[2020-04-03] MEDS: Saccharomyces boulardii 250 MG CAP PO SCH (08:29)
[2020-04-03] MEDS: Apixaban 5 MG TAB PO SCH (08:29)
[2020-04-03] MEDS: Amlodipine 5 MG TAB PO SCH (08:29)
[2020-04-03] MEDS: methylPREDNISolone Sod Succ/PF 125 MG/2 ML VIAL IVP SCH (08:33)
[2020-04-03] MEDS: Cefepime 2 GM in Sodium Chloride 0.9% 100 ML IVPB SCH (08:41)
[2020-04-03] MEDS: Polyethylene Glycol 3350 17 GM Packet PO SCH (09:38)
[2020-04-03 13:50] VITALS: BP 113/58; TEMP 97.5
== END 2020-04-03 14:35 | disposition hospice, inpatient (51) | DRG 871 ==
LOC: ERS 16:27 → ERHOLD 19:41 → 2SW 23:06
PROVIDERS: ADMIT Internal Medicine; ATTEND Internal Medicine
PROC: 8E0ZXY6 Isolation (ICD-10-PCS; principal; 2020-03-25)
DX: A41.89 Other specified sepsis (principal); U07.1 COVID-19; J12.82 Pneumonia due to coronavirus disease 2019; I26.99 Other pulmonary embolism without acute cor pulmonale; J96.01 Acute respiratory failure with hypoxia; I21.A1 Myocardial infarction type 2; E87.2 Acidosis; C18.9 Malignant neoplasm of colon, unspecified; C78.7 Secondary malignant neoplasm of liver and intrahepatic bile duct; I47.2 Ventricular tachycardia; R65.20 Severe sepsis without septic shock; I10 Essential (primary) hypertension; G47.00 Insomnia, unspecified; K21.9 Gastro-esophageal reflux disease without esophagitis; D64.9 Anemia, unspecified; K80.80 Other cholelithiasis without obstruction; E87.5 Hyperkalemia; J70.4 Drug-induced interstitial lung disorders, unspecified; Z51.5 Encounter for palliative care; Z66 Do not resuscitate; Z92.21 Personal history of antineoplastic chemotherapy; Z79.899 Other long term (current) drug therapy; E86.0 Dehydration
CPT/HCPCS: 36415; 70450; 71045; 71260; 71275; 74177; 80048; 80053; 81003; 81015; 82330; 82553; 82565; 82728; 82803; 83605; 83735; 84484; 85014; 85018; 85025; 85027; 85049; 85379; 85384; 85610; 85730; 86140; 86141; 86769; 87040; 87086; 87449; 87635; 93005; 93306; 94660; 94799; 96365; 96366; 96367; 96372; 96374; 96375; G0378; J0692; J0696; J1100; J1642; J1650; J1956; J2270; J2930; J3370; J3475; J3490; J7050; J7070; Q9967; U0003; U0005

== ENCOUNTER 2020-04-03 14:42 | Inpatient (IN) | payer OTHER ==
[2020-04-03 15:24] VITALS: BMI 22.7
[2020-04-03] MEDS: Lorazepam 2 MG/ML VIAL SLOW IVP SCH ×2 (16:44→20:09)
[2020-04-03] MEDS: Morphine 4 MG/ML VIAL SLOW IVP SCH ×3 (16:44→23:02)
[2020-04-04] MEDS: Lorazepam 2 MG/ML VIAL SLOW IVP SCH ×6 (00:22→21:12)
[2020-04-04] MEDS: Morphine 4 MG/ML VIAL SLOW IVP SCH ×7 (02:01→20:06)
[2020-04-04] MEDS ORDERED: Scopolamine 1.5 mg/72 hour Patch TOP SCH (10:00)
[2020-04-04] MEDS: Morphine 2 MG/ML VIAL SLOW IVP PRN ×2 (12:09→15:16)
[2020-04-04] MEDS ORDERED: Scopolamine 1.5 mg/72 hour Patch TOP PRN (21:29)
[2020-04-04 21:32] VITALS: BP 92/70; TEMP 102.7
== END 2020-04-04 22:52 | disposition expired | DRG 951 ==
LOC: 2SW 14:42 → T4-B 04-04 12:53
PROVIDERS: ADMIT Family Medicine; ATTEND Family Medicine
DX: Z51.5 Encounter for palliative care (principal); J96.00 Acute respiratory failure, unspecified whether with hypoxia or hypercapnia; Z66 Do not resuscitate
CPT/HCPCS: J2060; J2270